=== PATIENT | female | born 1985 | race Caucasian/White ===

== ENCOUNTER → 2021-07-08 | Emergency (ER) | payer OTHER ==
[~2021-07-08] MED LIST: FIORICET1 EACH PO; PEPCID AC20 MG PO
[2021-07-08 11:11] LABS: INFLUENZA A NAA NEGATIVE (NEGATIVE)
[2021-07-08 11:21] LABS: CORONAVIRUS 2019 SARS-COV-2 POSITIVE (NEGATIVE)
== END | disposition home or self-care (01) ==
LOC: FER 08:28
PROVIDERS: Emergency Medicine
DX: U07.1 COVID-19 (principal); Z88.6 Allergy status to analgesic agent
CPT/HCPCS: 87880; 99283; U0002